=== PATIENT | male | born 1970 | race Caucasian/White ===

== ENCOUNTER 2020-09-06 03:56 | Outpatient (CLI) | payer BC, SELFPAY ==
[2020-09-06 19:05] LABS: SARS-CoV-2 RNA PCR Negative
== END 2020-09-06 03:57 | disposition home or self-care (01) ==
LOC: ANHCOVIDDT 03:57
PROVIDERS: PCP Family Medicine; Visit Provider Internal Medicine Gastroenterology
DX: Z01.812 Encounter for preprocedural laboratory examination (principal); Z20.828 Contact with and (suspected) exposure to other viral communicable diseases
CPT/HCPCS: 87635; C9803; U0003

== ENCOUNTER 2020-09-08 01:33 | Day surgery (SDC) | payer BC, SELFPAY ==
[2020-09-04 10:43] VITALS: BMI 30.4
[2020-09-08 06:23] VITALS: BP 133/87; PULSE 82; RESP 18; TEMP 36.3; O2SAT 96; BMI 31.4
[2020-09-08] MEDS: LACTATED RINGERS 1,000 ML 150 ML IV CONT (06:32)
--- NOTE | 2020-09-08 07:05 | WPDANESEPPF ---
Anes - Initial Pre Proc Eval Procedure: Operation Date: 09/08/20 07:30 Proposed Procedures p Screening Colonoscopy - Lino Krishnan MD Date/Time: 09/08/20 07:05 Surgeon: Lino Krishnan MD Pre Op Diagnosis: Neoplasm Screening Patient Data Age: 50 Gender: M Height: 1.73 m Weight: 93.7 kg Last Vital Signs Temp 36.3 C L 09/08/20 06:23 Pulse 82 09/08/20 06:23 Resp 18 09/08/20 06:23 BP 133/87 09/08/20 06:23 Pulse Ox 96 09/08/20 06:23 Allergies Allergy/AdvReac Type Severity Reaction Status Date / Time No Known Allergies Allergy Verified 09/08/20 06:22 Home Medications Medication Instructions Recorded Confirmed Type losartan 25 mg tablet 25 mg PO DAILY #90 tablet 07/11/20 09/08/20 Rx varenicline 0.5 mg (11)-1 mg (42) See Rx Instructions PO PER PKG DIR 07/11/20 07/11/20 Rx tablets in a dose pack #53 each peg 3350-electrolytes 236 240 ml PO Q10M #4000 ml 07/19/20 09/04/20 Rx gram-22.74 gram-6.74 gram-5.86 gram solution cholecalciferol (vitamin D3) 1,250 1,250 mcg PO WEEKLY #8 cap 07/20/20 09/04/20 Rx mcg (50,000 unit) capsule levothyroxine 150 mcg tablet See Rx Instructions .ROUTE 07/20/20 Rx .COMPLEX #90 tablet Adult Low Dose Aspirin 81 mg PO DAILY 09/08/20 09/08/20 History Patient hx anesthesia problems: none Family hx anesthesia problems: none PMFSH Past Medical History Medical History (Updated 09/08/20 @ 07:06 by Zeeshan Schuler MD) Chronic GERD HTN (hypertension) Hyperlipidemia Hypothyroidism Obesity JUJU (obstructive sleep apnea) Family History Family History Father Family history of elevated blood lipids Family history of coronary artery disease Mother Family history of diabetes mellitus in first degree relative Diabetes mellitus Hypertension Family history of coronary artery disease Grandparent Family history of lung cancer Social History Social History Smoking status: Smoker, status unknown Alcohol intake: current Substance use: never Substance use type: does not use Living arrangements: with family Gender identity (if verbalized by the patient): Male Spiritual care concerns: No Anes - Eval Final PreProcedure Day of Procedure 09/08/20 07:05 Patient weight: obese Heart: regular rate and rhythm Lungs: clear to auscultation and normal air movement Airway: Mallampati scale class II Neurological: alert and oriented Last oral intake: >/= 8 hours ASA classification: III Emergent: no Anesthetic plan: proceed Anesthesia type and monitoring: general GIVS Informed Consent: The patient's anesthetic plan and its attendant risks and benefits were discussed with the patient/family/POA. Questions were solicited and answers provided to the satisfaction of the patient/family/POA.
--- NOTE | 2020-09-08 07:33 | PM.HPGS ---
History of Present Illness History of Present Illness Consent: Risks, benefits, and alternatives have been discussed and questions answered. Patient agrees to proceed with procedure. Chief complaint: Neoplasm Screening Narrative: Donn Alexandre is a 50 year old male here for first screening colonoscopy Review of Systems Constitutional: Constitutional: Denies headache(s) and Denies weakness Eyes: Eyes: Denies blurry vision ENT: Reports Normal hearing present, Denies headache(s) and Denies neck pain Cardiovascular: Cardiovascular: Denies chest pain and Denies dyspnea Respiratory: Respiratory: Denies dyspnea Gastrointestinal: Gastrointestinal: Reports no additional gastrointestinal complaints Genitourinary: Genitourinary: Denies dysuria Musculoskeletal: Musculoskeletal: Denies neck pain Integumentary/Breasts: Skin/Breast: Denies dry skin Neurologic: Reports Normal hearing present, Denies headache(s) and Denies weakness Psychiatric: Psychiatric: Denies anxiety Endocrine: Endocrine: Denies change in body appearance Hematologic/Lymphatic: Hematologic/Lymphatic: Denies easy bleeding Allergic/Immunologic: Allergic/Immunologic: Denies urticaria [facility] Past Medical History Medical History (Updated 09/08/20 @ 07:06 by Zeeshan Schuler MD) Chronic GERD HTN (hypertension) Hyperlipidemia Hypothyroidism Obesity JUJU (obstructive sleep apnea) Family History Family History Father Family history of elevated blood lipids Family history of coronary artery disease Mother Family history of diabetes mellitus in first degree relative Diabetes mellitus Hypertension Family history of coronary artery disease Grandparent Family history of lung cancer Social History Social History Smoking status: Smoker, status unknown Alcohol intake: current Substance use: never Substance use type: does not use Living arrangements: with family Gender identity (if verbalized by the patient): Male Spiritual care concerns: No Meds Home Medications and Allergies Home Medications Medication Instructions Recorded Confirmed Type losartan 25 mg tablet 25 mg PO DAILY #90 tablet 07/11/20 09/08/20 Rx varenicline 0.5 mg (11)-1 mg (42) See Rx Instructions PO PER PKG DIR 07/11/20 07/11/20 Rx tablets in a dose pack #53 each peg 3350-electrolytes 236 240 ml PO Q10M #4000 ml 07/19/20 09/04/20 Rx gram-22.74 gram-6.74 gram-5.86 gram solution cholecalciferol (vitamin D3) 1,250 1,250 mcg PO WEEKLY #8 cap 07/20/20 09/04/20 Rx mcg (50,000 unit) capsule levothyroxine 150 mcg tablet See Rx Instructions .ROUTE 07/20/20 Rx .COMPLEX #90 tablet Adult Low Dose Aspirin 81 mg PO DAILY 09/08/20 09/08/20 History Allergies Allergy/AdvReac Type Severity Reaction Status Date / Time No Known Allergies Allergy Verified 09/08/20 06:22 Vital Signs Vital Signs - 24 hr 09/08/20 06:23 Temperature 97.3 F L Pulse Rate 82 Respiratory Rate 18 Blood Pressure 133/87 Pulse Oximetry 96 Exam Const: General: comfortable and no acute distress HENMT: General nose exam: Normal nares present Eyes: General: appearance normal, both eyes and all related structures Neck: Neck: no JVD Resp: Auscultation: clear to auscultation bilaterally Cardio: Rate: regular rate Rhythm: regular rhythm GI: Inspection: non-distended GI Palp: Yes Soft to palpation Skin: General skin exam: normal color Neuro: General: gait normal Speech: normal speech Extrem: General: normal to inspection Psych: Mental Status: mental status grossly normal Assessment and Plan Assessment and plan (1) Screening for colon cancer: Code(s): Z12.11 - Encounter for screening for malignant neoplasm of colon Status: Acute Assessment and Plan: will proceed with colonoscopy (2) HTN (hypertension): Code(s): I10 - Ross
[2020-09-08 08:05] VITALS: BP 101/62; PULSE 75; RESP 17; O2SAT 95
[2020-09-08 08:14] VITALS: BP 105/61; PULSE 83; RESP 20; O2SAT 98
[2020-09-08 08:25] VITALS: BP 108/68; PULSE 67; RESP 21; O2SAT 99
== END 2020-09-08 08:41 | disposition home or self-care (01) ==
PROVIDERS: PCP Family Medicine; Visit Provider Internal Medicine Gastroenterology
PROC: 0DJD8ZZ Inspection of Lower Intestinal Tract, Via Natural or Artificial Opening Endoscopic (ICD-10-PCS; CPT 45378; principal; 2020-09-08 07:30)
DX: Z12.11 Encounter for screening for malignant neoplasm of colon (principal); D12.3 Benign neoplasm of transverse colon; D12.4 Benign neoplasm of descending colon; D12.5 Benign neoplasm of sigmoid colon; K63.5 Polyp of colon; K57.90 Diverticulosis of intestine, part unspecified, without perforation or abscess without bleeding; K21.9 Gastro-esophageal reflux disease without esophagitis; I10 Essential (primary) hypertension; E03.9 Hypothyroidism, unspecified; E66.9 Obesity, unspecified; E78.5 Hyperlipidemia, unspecified; G47.33 Obstructive sleep apnea (adult) (pediatric)
CPT/HCPCS: 45385; 88305; J2704; J7120

== ENCOUNTER 2021-12-07 01:50 | Day surgery (SDC) | payer BC, SELFPAY ==
[2021-11-23 15:15] VITALS: BMI 30.4
--- NOTE | 2021-12-06 14:09 | WPDANESEPPF ---
Anes - Initial Pre Proc Eval Procedure: Operation Date: 12/07/21 12:30 Proposed Procedures p Esophagogastroduodenoscopy & Screening Colonoscopy - Lino Krishnan MD Date/Time: 12/06/21 14:09 Surgeon: Lino Krishnan MD Pre Op Diagnosis: GERD, dysphagia, hx of colon polyps Patient Data Age: 51 Gender: M Height: 1.73 m Weight: 91 kg Allergies Allergy/AdvReac Type Severity Reaction Status Date / Time No Known Allergies Allergy Verified 12/07/21 10:56 Home Medications Medication Instructions Recorded Confirmed Type Adult Low Dose Aspirin 81 mg PO DAILY 09/08/20 12/07/21 History losartan 25 mg tablet 25 mg PO DAILY #90 tablet 09/24/21 12/07/21 Rx cholecalciferol (vitamin D3) 25 mcg PO DAILY 11/23/21 12/07/21 History [Vitamin D3] levothyroxine 150 mcg PO DAILY 11/23/21 12/07/21 History loratadine [Claritin] 10 mg PO DAILY 11/23/21 12/07/21 History omeprazole 20 mg PO DAILY 11/23/21 12/07/21 History Patient hx anesthesia problems: none Family hx anesthesia problems: none Results Review: All pre-operative results and documents have been reviewed as part of the pre-operative evaluation. [facility] Past Medical History Medical History BMI 32.0-32.9,adult BMI 34.0-34.9,adult Body mass index [BMI] 29.0-29.9, adult (11/11/18) Chronic GERD Chronic joint pain Dietary counseling and surveillance (08/19/16) Elevated cholesterol Elevated glucose Essential (primary) hypertension Ganglion cyst Herpes zoster without complication HTN (hypertension) Hyperlipidemia Hypothyroidism Hypothyroidism (acquired) Mass of left wrist Neck swelling Obesity JUJU (obstructive sleep apnea) Right bundle branch block Right hip pain Routine physical examination Screening for diabetes mellitus Screening for lipid disorders Screening for thyroid disorder Thyroid enlargement Thyroid mass Tobacco abuse Vitamin D deficiency Surgical History Surgical History S/P thyroidectomy Family History Family History Father Family history of elevated blood lipids Family history of coronary artery disease Diabetes mellitus Bladder cancer Mother Family history of diabetes mellitus in first degree relative Diabetes mellitus Hypertension Family history of coronary artery disease Cerebrovascular accident Grandparent Family history of lung cancer Sibling No problems noted. Social History Social History Smoking packs per day: 1 Smoking cigarettes per day: 20.0 Smoking status: Current every day smoker Tobacco type: cigarettes Alcohol intake: current Drinks per week: 2 Substance use: never Substance use type: does not use Living arrangements: with family Additional occupation/education comments: [employer] Gender identity (if verbalized by the patient): Male Spiritual care concerns: No Anes - Eval Final PreProcedure Day of Procedure 12/06/21 14:09 Patient weight: obese Heart: regular rate and rhythm Lungs: clear to auscultation and normal air movement Airway: Mallampati scale class II Neurological: alert and oriented Last oral intake: >/= 8 hours ASA classification: III Emergent: no Anesthetic plan: proceed Anesthesia type and monitoring: general GIVS and standard monitoring Results Review: All pre-operative results and documents have been reviewed as part of the pre-operative evaluation. Informed Consent: The patient's anesthetic plan and its attendant risks and benefits were discussed with the patient/family/POA. Questions were solicited and answers provided to the satisfaction of the patient/family/POA.
[2021-12-07 10:58] VITALS: BP 144/100; PULSE 94; RESP 18; TEMP 36.5; O2SAT 98; BMI 31.7
[2021-12-07] MEDS: LACTATED RINGERS 1,000 ML 150 ML IV CONT (11:01)
--- NOTE | 2021-12-07 12:42 | PM.HPGS ---
History of Present Illness History of Present Illness Consent: Risks, benefits, and alternatives have been discussed and questions answered. Patient agrees to proceed with procedure. Chief complaint: GERD, dysphagia, hx of colon polyps Narrative: Donn Alexandre is a 51 year old male with multiple TA polyps removed 08/2020, also lately noted sometimes food getting stuck at throat level, using omeprazole otc for gerd, never had egd Review of Systems Constitutional: Constitutional: Denies headache(s) and Denies weakness Eyes: Eyes: Denies blurry vision ENT: Reports Normal hearing present, Denies headache(s) and Denies neck pain Cardiovascular: Cardiovascular: Denies chest pain and Denies dyspnea Respiratory: Respiratory: Denies dyspnea Gastrointestinal: Gastrointestinal: Reports no additional gastrointestinal complaints Genitourinary: Genitourinary: Denies dysuria Musculoskeletal: Musculoskeletal: Denies neck pain Integumentary/Breasts: Skin/Breast: Denies dry skin Neurologic: Reports Normal hearing present, Denies headache(s) and Denies weakness Psychiatric: Psychiatric: Denies anxiety Endocrine: Endocrine: Denies change in body appearance Hematologic/Lymphatic: Hematologic/Lymphatic: Denies easy bleeding Allergic/Immunologic: Allergic/Immunologic: Denies urticaria PMF Past Medical History Medical History (Updated 12/07/21 @ 12:43 by Lino Krishnan MD) Adenomatous colon polyp BMI 32.0-32.9,adult BMI 34.0-34.9,adult Body mass index [BMI] 29.0-29.9, adult (11/11/18) Chronic GERD Chronic joint pain Dietary counseling and surveillance (08/19/16) Elevated cholesterol Elevated glucose Essential (primary) hypertension Ganglion cyst Herpes zoster without complication HTN (hypertension) Hyperlipidemia Hypothyroidism Hypothyroidism (acquired) Mass of left wrist Neck swelling Obesity JUJU (obstructive sleep apnea) Right bundle branch block Right hip pain Routine physical examination Screening for diabetes mellitus Screening for lipid disorders Screening for thyroid disorder Thyroid enlargement Thyroid mass Tobacco abuse Vitamin D deficiency Surgical History Surgical History S/P thyroidectomy Family History Family History Father Family history of elevated blood lipids Family history of coronary artery disease Diabetes mellitus Bladder cancer Mother Family history of diabetes mellitus in first degree relative Diabetes mellitus Hypertension Family history of coronary artery disease Cerebrovascular accident Grandparent Family history of lung cancer Sibling No problems noted. Social History Social History Smoking packs per day: 1 Smoking cigarettes per day: 20.0 Smoking status: Current every day smoker Tobacco type: cigarettes Alcohol intake: current Drinks per week: 2 Substance use: never Substance use type: does not use Living arrangements: with family Additional occupation/education comments: [employer] Gender identity (if verbalized by the patient): Male Spiritual care concerns: No Meds Home Medications and Allergies Home Medications Medication Instructions Recorded Confirmed Type Adult Low Dose Aspirin 81 mg PO DAILY 09/08/20 12/07/21 History losartan 25 mg tablet 25 mg PO DAILY #90 tablet 09/24/21 12/07/21 Rx cholecalciferol (vitamin D3) 25 mcg PO DAILY 11/23/21 12/07/21 History [Vitamin D3] levothyroxine 150 mcg PO DAILY 11/23/21 12/07/21 History loratadine [Claritin] 10 mg PO DAILY 11/23/21 12/07/21 History omeprazole 20 mg PO DAILY 11/23/21 12/07/21 History Allergies Allergy/AdvReac Type Severity Reaction Status Date / Time No Known Allergies Allergy Verified 12/07/21 10:56 Vital Signs Vital Signs - 24 hr 12/07/21 10:58 Temperature 97.7 F P
--- NOTE | 2021-12-07 13:18 | SUR.OPER ---
EGD start 12:48 end 12:53pm Colon start 12:59 end 13:14pm
[2021-12-07 13:19] VITALS: BP 100/61; PULSE 80; RESP 19; O2SAT 96
--- NOTE | 2021-12-07 13:19 | SUR.OPER ---
RN updated family
[2021-12-07 13:29] VITALS: BP 111/70; PULSE 75; RESP 19; O2SAT 98
[2021-12-07 13:39] VITALS: BP 133/90; PULSE 66; RESP 24; O2SAT 100
== END 2021-12-07 13:50 | disposition home or self-care (01) ==
PROVIDERS: PCP Family Medicine; Visit Provider Internal Medicine Gastroenterology
PROC: 0DJ08ZZ Inspection of Upper Intestinal Tract, Via Natural or Artificial Opening Endoscopic (ICD-10-PCS; CPT 43235; principal; 2021-12-07 12:30)
DX: Z12.11 Encounter for screening for malignant neoplasm of colon (principal); K57.30 Diverticulosis of large intestine without perforation or abscess without bleeding; D12.3 Benign neoplasm of transverse colon; K64.8 Other hemorrhoids; R13.10 Dysphagia, unspecified; K44.9 Diaphragmatic hernia without obstruction or gangrene; K29.70 Gastritis, unspecified, without bleeding; K21.9 Gastro-esophageal reflux disease without esophagitis; I10 Essential (primary) hypertension; E89.0 Postprocedural hypothyroidism; E78.5 Hyperlipidemia, unspecified; G47.33 Obstructive sleep apnea (adult) (pediatric); E55.9 Vitamin D deficiency, unspecified; I45.10 Unspecified right bundle-branch block; F17.210 Nicotine dependence, cigarettes, uncomplicated; E66.9 Obesity, unspecified; Z68.31 Body mass index [BMI] 31.0-31.9, adult; Z79.82 Long term (current) use of aspirin
CPT/HCPCS: 45380; 45385; 43239; 43248; 88305; J2704; J7120

== ENCOUNTER 2021-12-21 13:32 | Outpatient (CLI) | payer BC, SELFPAY ==
--- NOTE | 2021-12-27 16:16 | WPDHOLTEREM ---
Holter/Event Monitor Holter/Event Monitor Date of procedure: 12/21/21 Holter/Event Procedure: 24 Hr Holter Monitor Indications: Palpitations Conclusion: 1. 24 hour holter monitor on 12/21/21. 2. Underlying rhythm is sinus rhythm. HR range 56-145 bpm; average HR 80 bpm. 3. There are 5 premature supraventricular complexes. No supraventricular tachycardia. 4. No premature ventricular complexes. No ventricular tachycardia. 5. No sinoatrial or atrioventricular blocks. No significant pauses greater than 2 seconds. 6. No symptoms available for correlation.
== END 2021-12-21 13:33 | disposition home or self-care (01) ==
PROVIDERS: PCP Family Medicine; Visit Provider Nurse Practitioner Family
DX: R00.2 Palpitations (principal)
CPT/HCPCS: 93225; 93226

== ENCOUNTER 2023-12-19 10:34 | Outpatient (CLI) | payer BC, SELFPAY ==
--- NOTE | ~2023-12-19 | CT_ITS ---
Non-contrast CT scan of the Abdomen and Pelvis Clinical indication: Abdominal pain Technique: 2.5 mm axial scans were obtained through the abdomen and pelvis without intravenous or or al contrast. Dose reduction technique was used on this scan by utilizing automated exposure control a nd iterative reconstruction technique. The dose-length product (DLP) was 801.82 mGy-cm. Findings: Images through the lung bases reveal no abnormalities. There is no evidence of renal or ureteral calculi. The kidneys and the ureters are nondilated. The liver, spleen, pancreas, and adrenals appear normal. Cholecystectomy clips are present. There are atherosclerotic calcifications of the aorta. There is no evidence of bowel obstruction. There is minimal haziness in the central mesentery with sm all shotty lymph nodes present. Images through the pelvis were performed. There is no evidence of ascites or lymphadenopathy. Urinary bladder unremarkable. Prostate gland and seminal vesicles are unremarkable. Small fat-containing rig ht inguinal hernia noted. 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 Small fat-containing right inguinal hernia. Reviewed, dictated and finalized at [facility]. 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 Small fat-containing right inguinal hernia.
== END 2023-12-19 10:35 | disposition home or self-care (01) ==
LOC: ANHIMG 10:38
PROVIDERS: PCP Family Medicine; Visit Provider Nurse Practitioner Family
DX: R10.9 Unspecified abdominal pain (principal); R19.7 Diarrhea, unspecified; R10.32 Left lower quadrant pain; K40.90 Unilateral inguinal hernia, without obstruction or gangrene, not specified as recurrent
CPT/HCPCS: 74176

== ENCOUNTER 2024-03-16 07:49 | Outpatient (CLI) | payer BC, SELFPAY ==
--- NOTE | ~2024-03-16 | CT_ITS ---
CT of the Abdomen and Pelvis: Indication: Mesenteric panniculitis Technique: 2.5 mm axial scans were obtained through the abdomen and pelvis following intravenous adm inistration of 100 cc of Omnipaque 350. Dose reduction technique was used on this scan by utilizing a utomated exposure control and iterative reconstruction technique. The dose-length product (DLP) was 8 99.02 mGy-cm. COMPARISON: 12/19/2023 Findings: Scans through the lung bases are unremarkable. The liver, spleen, pancreas, adrenals and kidneys are within normal limits. Cholecystectomy clips are present. There are atherosclerotic calcifications of the aorta. No lymphadenopathy. No bowel obstruction or bowel wall thickening. There is no evidence to suggest acute appendicitis. No distinct evidence for mesenteric panniculitis. Images through the pelvis were performed. Urinary bladder unremarkable. Prostate gland unremarkable. Small fat-containing right inguinal hernia present. Ascites. Impression: Interval resolution of mesenteric panniculitis. Small fat-containing right inguinal hernia. Reviewed, dictated and finalized at [facility]. Impression: Interval resolution of mesenteric panniculitis. Small fat-containing right inguinal hernia.
[2024-03-16 08:12] LABS: Estimated Glomerular Filt Rate > 60
== END 2024-03-16 07:50 | disposition home or self-care (01) ==
PROVIDERS: PCP Family Medicine; Visit Provider Nurse Practitioner
DX: K65.4 Sclerosing mesenteritis (principal); K40.90 Unilateral inguinal hernia, without obstruction or gangrene, not specified as recurrent
CPT/HCPCS: 74177; Q9967

== ENCOUNTER 2025-02-25 01:34 | Day surgery (SDC) | payer OTHER, SELFPAY ==
[2025-02-16 13:13] VITALS: BMI 29.7
--- OUTSIDE RECORDS SUMMARY | 2025-02-25 01:36 | XMS_ITS | Clinical Summary ---
Author Organization [facility] Address [address] [place] [address] Care Team Providers Care Global Recruiter Name Role Phone Edenilson Dupree MD Primary Care Provider [phone] Source Comments [facility],non-owned Affiliates and Associated Physician Practices is amultiple site organization consisting of ambulatory clinics and hospital sitesin [place], [place], [place] and [place]. This disclosure is being madepursuant to the Care Everywhere program and may not contain all information available regarding this patient. Last updated 18.[facility] Allergies No known active allergies Medications * Be aware that medications may not be up to date on this document. Alwaysverify current medications with the patient. Medication Sig Dispensed Refills Start Date End Date Status aspirin (ASPIRIN) 81 MG tablet Take 81 mg by mouth DAILY. 09/04/2017 Active atorvastatin (LIPITOR) 20 MG tablet 5 04/28/2017 Active omeprazole (PRILOSEC) 20 MG capsule Take 20 mg by mouth DAILY. 4 01/06/2017 Active losartan (COZAAR) 50 MG tablet Take 50 mg by mouth DAILY. 01/21/2017 Active vitamin D, ergocalciferol, (DRISDOL) 16374 UNITS capsule Take 50,000 capsules by mouth ONCE. 01/21/2017 Active SYNTHROID 150 MCG tablet Take 1 tablet by mouth daily before breakfast 90 tablet 4 11/12/2018 Active Active Problems Problem Noted Date Diagnosed Date Fatigue 03/27/2017 Hypothyroidism (acquired) 03/27/2017 Resolved Problems Problem Noted Date Diagnosed Date Resolved Date Hypogonadism in male 07/03/2017 018 Social History Tobacco Use Types Packs/Day Years Used Date Smoking Tobacco: Former Cigarettes Q uit: 10/22/2016 Smokeless Tobacco: Never Alcohol Use Standard Drinks/Week Comments No 0 (1 standard drink = 0.6 oz pur e alcohol) Sex and Gender Information Value Date Recorded Sex Assigned at Not on file Gender Identity Not on file Sexual Orientation Not on file Last Filed Vital Signs Vital Sign Reading Time Taken Comments Blood Pressure 108/62 07/23/2018 3:35 PM CDT Pulse 84 07/23/2018 3:35 PM CDT Temperature 36.7 C (98 F) 07/23/2018 3:35 PM CDT Respiratory Rate 14 04/23/2018 8:42 AM CDT Oxygen Saturation 97% 07/23/2018 3:35 PM CDT Inhaled Oxygen Concentration - - Weight 86.5 kg (190 lb 11.2 oz) 07/23/2018 3:35 PM CDT Height 172 cm (5' 7.72 ) 07/23/2018 3:35 PM CDT Body Mass Index 29.24 07/23/2018 3:35 PM CDT Plan of Treatment Health Maintenance Due Date Last Done Comments COLOGUARD (AGES 45-75) - COL ON CA SCREENING 1969 COLON MONITORING 1969 COLONOSCOPY - COLON CA SCREENING 1969 CT COLONOGRAPHY - COLON CA SCREENING 1969 Colorectal Cancer Screening 1969 FIT - COLON CA SCREENING 1969 FLEX SIG - COLON CA SCREENING 1969 HIV SCREENING 1984 HEPATITIS C SCREENING 03/24/1987 DTAP/TDAP/TD VACCINES (1 - Tdap) 1988 HEPATITIS B VACCINE (1 of 3 - 19+ 3-dose series) 1988 SCREENING FOR DIABETES 04/23/2018 PNEUMOCOCCAL VACCINE 50+ (1 of 1 - PCV) 2019 ZOSTER VACCINE (1 of 2) 2019 COVID-19 VACCINE ( - 2023-2 5 season) 2024 DEPRESSION SCREENING 11/17/2024 INFLUENZA VACCINE (Season Ended) 2025 HIB VACCINE Aged Out No longer eligi ble based on patient's age to complete this topic HPV VACCINE Aged Out No longer eligi ble based on patient's age to complete this topic MENINGOCOCCAL (Group B) VACC INE SHARED DECISION-MAKING Aged Out No longer eligibl e based on patient's age to complete this topic MENINGOCOCCAL GROUPS A/C/Y/W VACCINE Aged Out No longer eligible b ased on patient's age to complete this topic PNEUMOCOCCAL VACCINE Aged Out No long er eligible based on patient's age to complete this topic Care Teams Global Recruiter Relationship Specialty Start Date End Date Edenilson Dupree MD [address] [place] [address] PCP - General 01/21/17
--- OUTSIDE RECORDS SUMMARY | 2025-02-25 01:36 | XMS_ITS | Encounter Summary ---
Author Organization [facility] Address [address] [place] [address] Care Team Providers Care Night Shift Supervisor Name Role Phone Edenilson Dupree MD Primary Care Provider [phone] Encounter Details Date Type Department Care Team (Late st Contact Info) Description 04/11/2022 Abstract [facility] [address] [address] Hilary Chiang MA Social History Tobacco Use Types Packs/Day Years Used Date Smoking Tobacco: Every Day Cigarettes Smokeless Tobacco: Never Sex and Gender Information Value Date Recorded Sex Assigned at Not on file Legal Sex Male 8:22 PM CDT Gender Identity Not on file Sexual Orientation Not on file documented as of this encounter Plan of Treatment Not on file documented as of this encounter Visit Diagnoses Not on filedocumented in this encounter Care Teams Night Shift Supervisor Relationship Specialty Start Date End Date Edenilson Dupree MD [address] [place], [place] [id number] PCP - General 03/31/14 documented as of this encounter
--- OUTSIDE RECORDS SUMMARY | 2025-02-25 01:36 | XMS_ITS | Encounter Summary ---
Author Organization [facility] Address [address] [place] [address] Care Team Providers Care Ambulatory Analyst Name Role Phone Edenilson Dupree MD Primary Care Provider [phone] Reason for Visit * Reason Onset Date Comments Appointment 02/01/2019 Encounter Details Date Type Department Care Team (Late st Contact Info) Description 02/01/2019 Telephone [facility] General Internal Medicine [address] [address] Albin Mars MD [address] [place] [address] Appointment Social History Tobacco Use Types Packs/Day Years Used Date Smoking Tobacco: Former Cigarettes Q uit: 10/22/2016 Smokeless Tobacco: Never Alcohol Use Standard Drinks/Week Comments No 0 (1 standard drink = 0.6 oz pur e alcohol) Sex and Gender Information Value Date Recorded Sex Assigned at Not on file Gender Identity Not on file Sexual Orientation Not on file documented as of this encounter Miscellaneous Notes * Telephone Encounter - Vanessa Robertson - 02/01/2019 11:53 AM CDT PT: Baldomero Pop PH: [phone] I called patient to get him rescheduled for a bumped appointment and Dr. Mars does not have anything again until April and patient stated he has medications that need regulating so he cannot wait until April. Please advise how to schedule this patient to get him in earlier. Thanks, Vanessa documented in this encounter Plan of Treatment Not on file documented as of this encounter Visit Diagnoses Not on filedocumented in this encounter Care Teams Ambulatory Analyst Relationship Specialty Start Date End Date Edenilson Dupree MD [address] [place] [address] PCP - General 01/21/17 documented as of this encounter
--- OUTSIDE RECORDS SUMMARY | 2025-02-25 01:36 | XMS_ITS | Data Portability ---
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 Discussed evaluation and treatment options including risks and benefits with patient, and patient expressed understanding. The following interventions were recommended: heart healthy low-fat, low-sodium diet, continue regular exercise, maintain appropriate weight, continue current medications, and medical follow-up as noted. [email or web address] Not available 04/28/2017 17:35:19 Plan of Treatment Reminders Order Date Submit Date Provider Last Modified By Organization Details Last Modified Time Details Appointments None recorded. Lab None recorded. Referral None recorded. Procedures None recorded. Surgeries None recorded. Imaging None recorded. Medication Orders losartan 25 mg tablet 2017 018 INTERFACE [employer] #[id number], [address] [place], [place], [id number], 8 17:28:08 losartan 25 mg tablet 2017 018 INTERFACE [employer] #[id number], [address] [place], [place], [id number], 8 18:04:49 atorvastat in 20 mg tablet 2016 017 INTERFACE [employer] #[id number], [address], [place], [id number], 7 17:46:14 Patient TargetsNo targets recorded. Patient Instructions Encounter Date Encounter Id Patient Instructions Last Modified By Organization Details Last Modified Time 07/01/2017 [id number] Weight loss 20 pounds Exercise advised Low cholesterol diet advised Low sodium diet advised. [email or web address] Not available 07/01/2017 18:15:16 12/30/2017 [id number] Weight loss 10 pounds Exercise advised Low cholesterol diet advised Low sodium diet advised. [email or web address] Not available 12/30/2017 18:04:44 06/23/2018 [id number] Exercise advised Low cholesterol diet advised Low sodium diet advised. Scribed by Chantelle PACE [email or web address] Not available 06/23/2018 17:26:22 Reason for Referral None Reported. Results Created Date Observation Date Name Description Value Unit Range Abnormal Flag Note LastModifiedBy Organization Detail LastModifiedTime 04/23/20 17 01/22/2017 home sleep testi ng* No observ ation record ed. [email or web address] Not Available 2016 14:17:30 04/29/20 17 04/28/2017 elect rocar diogr am No observ ation record ed. [email or web address] Not Available 2016 12:28:07 12/31/19 18 12/30/2017 elect rocar diogr am No observ ation record ed. [email or web address] Not Available 2017 18:32:16 06/23/20 18 06/23/2018 elect rocar diogr am No observ ation record ed. [email or web address] Not Available 2017 05:27:37 07/20/20 18 07/07/2018 stres s echoc ardio gram No observ ation record ed. [email or web address] Not Available 2018 16:18:13 Result Notes None recorded. Problems Name Problem SNOMED Code Status Onset Date Resolution Date Notes Provider Name and Address Organization Details Recorded Time Dyslipidemia 563948188 Active 2016 EZEKIEL Cain [facility] 7 06:24:11 Benign hypertension 20843164 Active 2016 EZEKIEL Cain [facility] 7 06:24:36 Multinodular goiter 913565976 Active 2016 Candy Gonzáles [facility] 7 02:18:20 Electrocardiog [place] abnormal 787678923 [facility] 7 15:41:59 Obstructive sleep apnea syndrome 61713524 Active 2016 Vergaramani Jose [facility] 7 15:42:16 Type 2 diabetes mellitus without complication 311728402 Active 2016 [facility] 7 15:42:40 Problem Notes None recorded. Procedures Surgical History None recorded. Imaging Results Imaging Date Name Status LastModified by Organization Details LastModified Time 01/22/2017 home sleep testing* completed Infor mation not available 04/23/2017 14:17:30 04/28/2017 electrocardiogram completed Informa tion not available 06/28/2017 12:28:07 12/30/2017 electrocardiogram completed Informa tion not available 12/31/2017 18:32:16 06/23/2018 electrocardiogram completed [email or web address] Informa tion not available 06/24/2018 05:27:37 07/07/2018 stress echocardiogram completed Information not available 06/19/2019 16:18:13 Procedure Notes None recorded. Medical Equipment None Reported. Allergies No known drug allergies Medications Name Sig Start Date Stop Date Status Note LastModified by Organization Details LastModified Time losartan 50 mg tablet TAKE 1 TABLET BY MOUTH DAILY 12/30 completed Not Available Not Available Not Available levothyroxin e 175 mcg tablet 1 tab qd active Not Available Not Available Not Available levothyroxin e 137 mcg tablet active Not Available Not Available Not Available atorvastatin 20 mg tablet TAKE 1 TABLET BY MOUTH EVERY DAY active Not Available Not Available No t Available atorvastatin 10 mg tablet 1 tab qd 07/01 completed Not Available Not Available Not Available valacyclovir 1 gram tablet 10/21 completed Not Available Not Available Not Available hydrocodone 5 mg-acetamino phen 325 mg tablet active Not Available Not Available Not Available Synthroid 150 mcg tablet 1 tab qd active Not Available Not Available Not Available levothyroxin e 100 mcg tablet 01/20 completed Not Available Not Available Not Available oxycodone-ac etaminophen 5 mg-325 mg tablet 12/30 completed Not Available Not Available Not Available levothyroxin e 88 mcg tablet 01/20 completed Not Available Not Available Not Available oseltamivir 75 mg capsule 04/28 completed Not Available Not Available Not Available levothyroxin e 125 mcg tablet Take 1 tablet every day by oral route for 30 days. active Not Available Not Available No t Available losartan 25 mg tablet TAKE 1 TABLET BY MOUTH EVERY DAY active Not Available Not Available No t Available omeprazole 20 mg capsule,berkley yed release 1 tab qd active Not Available Not Available Not Available benazepril 20 mg tablet 01/20 completed Not Available Not Available Not Available ergocalcifer ol (vitamin D2) 1,250 mcg (50,000 unit) capsule 1 cap weekly 04/28 completed Not Available Not Available Not Available benazepril 10 mg tablet 10/21 completed Not Available Not Available Not Available levothyroxin e 112 mcg tablet 04/28 completed Not Available Not Available Not Available amoxicillin 875 mg-potassium clavulanate 125 mg tablet 12/30 completed Not Available Not Available Not Available chlorhexidin e gluconate 0.12 % mouthwash 12/30 completed Not Available Not Available Not Available Aspir-81 1 tab qd active Not Available Not Av ailable Not Available Vitamin D3 50 mcg (2,000 unit) capsule Take 1 capsule every day by oral route as directed . active Not Available Not Available No t Available Chantix Continuing Month Box 1 mg tablet 1 tab bid active Not Available Not Available No t Available Chantix Starting Month Box 0.5 mg (11)-1 mg (42) tablets in dose pack active Not Available Not Available Not Available Vitals Date Recorded Body height Body mass index (BMI) Body weight Heart rate Oxygen saturation Oxygen saturation in Arterial blood by Pulse oximetry Systolic blood pressure Diastolic blood pressure Provider Name and Address Organization Details Last Updated DateTime 8 172.72 cm 30 kg/m2 53081.7 g 76 /min 94 % 94 % 104 mm[Hg] 80 mm[Hg] Alisha Chance [facility] 8 17:38:41 Date Recorded Body height Body mass index (BMI) Body weight Oxygen saturation Oxygen saturation in Arterial blood by Pulse oximetry Heart rate Systolic blood pressure Diastolic blood pressure Provider Name and Address Organization Details Last Updated DateTime 8 172.72 cm 28.6 kg/m2 58956.3 7 g 94 % 94 % 66 /min 128 mm[Hg] 84 mm[Hg] Melody Bull [facility] 8 16:59:40 Date Recorded Body height Body mass index (BMI) Body weight Heart rate Oxygen saturation Oxygen saturation in Arterial blood by Pulse oximetry Systolic blood pressure Diastolic blood pressure Provider Name and Address Organization Details Last Updated DateTime 7 172.72 cm 33.6 kg/m2 560329. 91 g 93 /min 96 % 96 % 124 mm[Hg] 86 mm[Hg] Alisha Chance [facility] 7 16:23:13 Date Recorded Body height Body mass index (BMI) Body weight Heart rate Oxygen saturation Oxygen saturation in Arterial blood by Pulse oximetry Systolic blood pressure Diastolic blood pressure Provider Name and Address Organization Details Last Updated DateTime 7 172.72 cm 33.5 kg/m2 29419.3 2 g 96 /min 98 % 98 % 124 mm[Hg] 84 mm[Hg] Selina Case [facility] 7 17:25:14 Social History Question Answer Notes LastModified by Organizat ion Details LastModified Time Tobacco Smoking Status Current Every Day Smoker Vipin redmond [facility] 10/21/2016 12:42:29 What Was The Date Of Your Most Recent Tobacco Screening? 06/23/2018 Information n ot available 06/10/2019 How Many Years Have You Smoked Tobacco? 20 [email or web address] Information not available 10/21/2016 Sex: Unknown Functional Status None recorded. Mental Status None recorded. Family History Relationship Description Onset Age of this Age Resolved Age Notes LastModified by Organization Details LastModified Time Father Myocardial infarction [email or web address] Not available 10/21 12:40:47 Father Diabetes mellitus mother nhadid Not available 2015 12:40:59 Father Hypertensive disorder nhadid Not available 2015 12:41:15 Father Hypercholest erolemia mother nhadid Not available 2015 12:41:52 Mother Cerebrovascu lar accident TIA [email or web address] Not available 03/2016 12:42:14 Medical History Condition Response Thyroid Disease Y Diabetes Y Hyperlipidemia Y Sleep Apnea Y Hypertension Y Past Encounters Encounter ID Performer Location Encounter Start Date Encounter Closed Date Diagnosis/Indication Diagnosis SNOMED-CT Code Diagnosis ICD10 Code Diagnosis Note [id number] MD Thad Galvan Office [address] [place] [address] 10/21/2016 12:01:44 10/22/2016 13:06:52 Electrocardiogram abnormal 315176708 R94.31 Will get exercise stress echo, to look for any structural heart disease, and to look for any ischemia Pre-surger y evaluation 851863972 Z01.818 Dyslipidemia 280834821 E 78.5 Benign hypertension 1072 5009 I10 Has sided effects from Benazepril will switch to Losartan [id number] MD Thad Galvan Office [address] [place] [place] [address] 01/20/2017 10:06:39 01/21/2017 14:03:42 Electrocardiogram abnormal 338630229 R94.31 Pre-surger y evaluation 614265985 Z01.818 Dyslipidemia 170460034 E 78.5 Benign hypertension 1072 5009 I10 Has sided effects from Benazepril switched to Losartan Obstructiv e sleep apnea syndrome 04692429 G47.33 Type 2 romero betes mellitus without complication 478077116 E11.9 [id number] Martin Chinchilla MD [facility] OFFICE [address] [place] [address] 04/28/2017 15:57:12 04/29/2017 10:19:26 Electrocardiogram abnormal 058731327 R94.31 Had SE 10/21/16 : Negative stress echo. Mild exercise impairment . Increase exercise. Dyslipidemia 091411020 E 78.5 03/22/17: LDL 110 Needs to keep LDL less than 70, and HDL more than 40. Increased atorvastat in 10 mg to 20 mg 04/28/17. FLP 4 wks. Increase weight loss and exercise. Benign hypertension 1072 5009 I10 Patient's blood pressure is {{well-con trolled* s omewhat well-contr olled not well-contr olled}} on present medical therapy. Patient is {{tolerati ng, without difficulty ,* having side effects with}} the current medication s. I have {{not made* made the following} } changes to the current regimen. {{ Patient is advised to maintain a blood pressure diary.}} Patient was advised to eat a low-sodium diet (2 grams sodium or less daily). Obstructiv e sleep apnea syndrome 74321206 G47.33 Tolerating CPAP. Continue. Type 2 romero betes mellitus without complication 176611132 E11.9 03/22/17 - HGb A1C 6.7 Pt to f/u with PCP. [id number] Martin Chinchilla MD [facility] [address] [place] [address] 07/01/2017 17:02:23 07/02/2017 08:46:28 Benign hypertension 02545787 I10 Has sided effects from Benazepril switched to Losartan Electrocar diogram abnormal 476899282 R94.31 Had SE 10/21/16 : Negative stress echo. Mild exercise impairment . Increase exercise. Dyslipidemia 897690066 E 78.5 06/30/17 LDL 100 Needs to keep LDL less than 70, and HDL more than 40. Increased atorvastat in 10 mg to 20 mg 04/28/17. Increase weight loss and exercise. Obstructiv e sleep apnea syndrome 71688903 G47.33 Tolerating CPAP. Continue. Type 2 romero betes mellitus without complication 988966110 E11.9 03/22/17 - HGb A1C 6.7 Pt to f/u with PCP. Metabolic syndrome X 237 482960 E88.81 Needs to lose weight 20- 30 pounds [id number] Martin Chinchilla MD [facility] [address] [place] [address] 12/30/2017 16:34:50 12/31/2017 13:28:28 Benign hypertension 33322029 I10 On Losartan we will decrease from 50mg to 25mg. Electrocar diogram abnormal 627157926 R94.31 Had SE 10/21/16 : Negative stress echo. Mild exercise impairment . Increase exercise. Dyslipidemia 099746347 E 78.5 06/30/17 LDL 100Will repeat FLP before next visitNeeds to keep LDL less than 70, and HDL more than 40. Atorvastat in 20 mg qd Increase weight loss and exercise. Obstructiv e sleep apnea syndrome 87531539 G47.33 Tolerating CPAP. Continue. Type 2 romero betes mellitus without complication 557342104 E11.9 03/22/17 - HGb A1C 6.7Will check glucose before next visit.Pt to f/u with PCP. Metabolic syndrome X 237 373663 E88.81 Needs to lose weight 20- 30 pounds [id number] Martin Chinchilla MD [facility] [address] [place] [address] 06/23/2018 16:33:02 07/22/2018 21:16:30 Benign hypertension 88762472 I10 Losartan was decreased to 25 mg. Electrocar diogram abnormal 858849924 R94.31 Had SE 10/21/16 : Negative stress echo. Mild exercise impairment . Increase exercise. Dyslipidemia 090834315 E 78.5 06/23/18 LDL 93 Needs to keep LDL less than 70, and HDL more than 40. Atorvastat in 20 mg qd Increase weight loss and exercise. Obstructiv e sleep apnea syndrome 26814010 G47.33 Tolerating CPAP. Continue. Type 2 romero betes mellitus without complication 301805801 E11.9 03/22/17 - HGb A1C 6.7Will check glucose before next visit.Pt to f/u with PCP. Metabolic syndrome X 237 701742 E88.81 Will get exercise stress echo, to look for any structural heart disease, and to look for any ischemia [id number] Marcela Collins [facility] [address] [place] [address] 06/23/2018 17:39:01 05/31/2019 18:35:03 Benign hypertension 22661066 I10 Losartan was decreased to 25 mg. Health Concerns Section Related Observation LastModified by Organization Detai ls LastModified Time None Recorded Concern Status LastModified by Organization Details LastModified Time None Recorded Advance Directives Directive None Recorded Payers Encounter Date Sequence Insurance Name Policy Number Policy Boyle Covered Member ID Boyle Member ID Guarantor Name 04/28/2017 1 [place] [employer] [place] [place] [place] [address] [facility] [id number] [facility] 07/01/2017 1 [place] [address] [facility] [id number] [facility] 12/30/2017 1 [place] [address] [facility] [id number] [facility] 06/23/2018 1 [place] [facility] EMPLOYEE PROGRAM (PPO) [address] [facility] [id number] [facility] 06/23/2018 1 [place] [facility] EMPLOYEE PROGRAM (PPO) [address] [facility] [id number] [facility] Notes Date Note Type Note Provider Name and Address Organization Details Recorded Time 04/28/2017 text/html 04/28/17 CC: Follow-up 47 year old man with Hyperlipidemia, and Hypertension, thyroidectomy 10/22/16, is here for cardiac follow up, had RBBB. Pt is here today for a Follow-up. Pt started with CPAP in February. He is not feeling well. Pt reports he still has daytime sleepiness and fatigue. Synthroid increased per endo recently. Previously, he has dyspnea on exertion, and occasional chest pain, orthopnea, no PND's. NO Palpitation. NO leg edema. No side effects from current medications. He has been active, due to Shortness of breath. No known history of CAD, LA, Arrhythmia, or valvular heart disease. Had a stress test, was negative Had negative SE done in 10/21/16 Results from this visit, or from the past:03/22/17: Na 144 ,K 4.3 ,CL 105 ,CO2 22 ,GLU 127 ,BUN 19 ,CR 0.90, CK 82 ,TC 167 ,TG 113 ,HDL 34 ,LDL 110 ,AST 25 ,ALT 53 10-21-2016 SOD 142, K 4.1, CL 104, CO2 26, GL 159, BUN 18, CR 0.9 EK10/21/16 NSR, RBBB. Abnormal ECG. No previous ECGs available. SE 10/21/16 : Negative stress echo. Mild exercise impairment. Martin Chinchilla MD [address] [place], [address], [facility] 04/28/2017 23:35:32 07/01/2017 text/html 07/01/17 CC: Follow-up 47 year old man with Hyperlipidemia, and Hypertension, thyroidectomy 10/22/16, is here for cardiac follow up, had RBBB. Patient presents today for follow-up. No new complaints, feeling well overall. 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 No chest pain. No shortness of breath at rest. Rare dyspnea on exertion. No palpitations. No dizziness. No syncope or near syncope. NO leg edema. No side effects from current medications. He has been active, due to Shortness of breath. No known history of CAD, LA, Arrhythmia, or valvular heart disease. Had a stress test, was negative Previously, pt started with CPAP in February. He is not feeling well. Pt reports he still has daytime sleepiness and fatigue. Synthroid increased per endo recently. Had negative SE done in 10/21/16 Results from this visit, or from the past:06/30/17 : VIT D : TC 158 ,TG 146 ,HDL 29 ,LDL 100 , 03/22/17: Na 144 ,K 4.3 ,CL 105 ,CO2 22 ,GLU 127 ,BUN 19 ,CR 0.90, CK 82 ,TC 167 ,TG 113 ,HDL 34 ,LDL 110 ,AST 25 ,ALT 53 10-21-2016 SOD 142, K 4.1, CL 104, CO2 26, GL 159, BUN 18, CR 0.9 EKG 04/28/17 : NSR. IRBBB. low voltage, chest leads EK10/21/16 NSR, RBBB. Abnormal ECG. No previous ECGs available. SE 10/21/16 : Negative stress echo. Mild exercise impairment. Martin Chinchilla MD [address] [place], [address], [facility] 07/01/2017 18:15:24 12/30/2017 text/html 12/30/2017 CC: Follow-up 47 year old man with Hyperlipidemia, and Hypertension, thyroidectomy 10/22/16, is here for cardiac follow up, had RBBB. He has lost 23 lbs since last visit. Today his BP is 104/80, but denies any lightheadedness, dizziness, syncope and near syncope. Quit smoking Oct 2017. He is active now and eating a low carb diet. Patient presents today for follow-up. No new complaints, feeling well overall. 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 No chest pain. No shortness of breath at rest. No dyspnea on exertion. No palpitations. No dizziness. No syncope or near syncope. NO leg edema. No side effects from current medications. He has been active, due to Shortness of breath. No known history of CAD, LA, Arrhythmia, or valvular heart disease. Had a stress test, was negative Previously, pt started with CPAP in February. He is not feeling well. Pt reports improved daytime sleepiness and fatigue. Feeling better. Results from this visit, or from the past: 06/30/17 : VIT D : TC 158 ,TG 146 ,HDL 29 ,LDL 100 ,03/22/17: Na 144 ,K 4.3 ,CL 105 ,CO2 22 ,GLU 127 ,BUN 19 ,CR 0.90, CK 82 ,TC 167 ,TG 113 ,HDL 34 ,LDL 110 ,AST 25 ,ALT 53 10-21-2016 SOD 142, K 4.1, CL 104, CO2 26, GL 159, BUN 18, CR 0.9 EKG 04/28/17 : NSR. IRBBB. low voltage, chest leadsEK10/21/16 NSR, RBBB. Abnormal ECG. No previous ECGs available. SE 10/21/16 : Negative stress echo. Mild exercise impairment. Martin Chinchilla MD [address] [place], [address], [facility] 12/30/2017 18:05:11 06/23/2018 text/html 06/23/18 CC: Follow-up 47 year old man with Hyperlipidemia, and Hypertension, thyroidectomy 10/22/16, is here for cardiac follow up, had RBBB. He has lost 3 lbs since his last visit. Quit smoking Oct 2017. He is active now and eating a low carb diet. Patient presents today for follow-up. No new complaints, feeling well overall. 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 No chest pain. No shortness of breath at rest. No dyspnea on exertion. No palpitations. No dizziness. No syncope or near syncope. NO leg edema. No side effects from current medications. He has been active, due to Shortness of breath. No known history of CAD, LA, Arrhythmia, or valvular heart disease. Had a stress test, was negative Previously, pt started with CPAP in February. He is not feeling well. Pt reports improved daytime sleepiness and fatigue. Feeling better. Results from this visit, or from the past: 06/23/18: TC 153 ,HDL 42 ,LDL : VIT D : TC 158 ,TG 146 ,HDL 29 ,LDL 100 ,03/22/17: Na 144 ,K 4.3 ,CL 105 ,CO2 22 ,GLU 127 ,BUN 19 ,CR 0.90, CK 82 ,TC 167 ,TG 113 ,HDL 34 ,LDL 110 ,AST 25 ,ALT 53 10-21-2016 SOD 142, K 4.1, CL 104, CO2 26, GL 159, BUN 18, CR 0.9 EKG 06/23/2018: Rbbb; low voltage, chest leads; left axis deviationEK12/30/17 Incomplete RBBB. Low voltage, chest leads. Inferior myocardial infarction, age undetermined. Left axis deviationEKG 04/28/17 : NSR. IRBBB. low voltage, chest leadsEK10/21/16 NSR, RBBB. Abnormal ECG. No previous ECGs available. SE 10/21/16 : Negative stress echo. Mild exercise impairment. Mratin Chinchilla MD [address] [place], [address], [place] [facility] 07/22/2018 21:16:28
--- OUTSIDE RECORDS SUMMARY | 2025-02-25 01:36 | XMS_ITS | Clinical Summary ---
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 Active losartan 50 MG tablet Take 50 mg by mouth daily. Active rosuvastatin 20 MG tablet Take 20 mg by mouth nightly at bedtime. Active aspirin 81 MG chewable tablet Chew 81 mg by mouth daily. Active loratadine 10 MG tablet Take 10 mg by mouth daily. Active Vitamin D3, cholecalciferol , 2000 UNIT Tab tablet Take 2,000 Units by mouth daily. Active omeprazole 20 MG capsule Take 20 mg by mouth daily. Active buPROPion SR (WELLBUTRIN SR) 150 MG 12 hr tablet Take 1 tablet (150 mg total) by mouth daily. Future refills by PCP 30 tablet 08/06/2022 Active Active Problems Problem Noted Date Diagnosed Date Electrocardiogram abnormal 04/25/2017 Obstructive sleep apnea syndrome 04/25/2017 Type 2 diabetes mellitus wit hout complication ([facility]) 04/25/2017 Fatigue 03/27/2017 Hypothyroidism (acquired) 03/27/2017 Multinodular goiter 01/13/2017 Benign hypertension 01/10/2017 Dyslipidemia 01/10/2017 Family History Medical History Relation Comments Hypertension Father [place] Father Stent Cardiac Father Hyperlipidemia Mother Stroke Mother Relation Status Comments Father Mother Social History Tobacco Use Types Packs/Day Years Used Date Smoking Tobacco: Every Day Cigarettes Smokeless Tobacco: Never Sex and Gender Information Value Date Recorded Sex Assigned at Not on file Legal Sex Male 8:22 PM CDT Gender Identity Not on file Sexual Orientation Not on file Last Filed Vital Signs Vital Sign Reading Time Taken Comments Blood Pressure 162/92 08/06/2022 3:00 PM CDT Pulse 99 08/06/2022 3:00 PM CDT Temperature - - Respiratory Rate - - Oxygen Saturation 97% 08/06/2022 3:00 PM CDT Inhaled Oxygen Concentration - - Weight 97.5 kg (215 lb) 08/06/2022 3:00 PM CDT Height 172.7 cm (5' 8 ) 08/06/2022 3:00 PM CDT Body Mass Index 32.69 08/06/2022 3:00 PM CDT Plan of Treatment Health Maintenance Due Date Last Done Comments Colorectal Cancer Screening Colonoscopy (10 Years) 1969 Annual Physical 1972 Pneumococcal Vaccine: Pediatrics (0 to 5 Years) and At-Risk Patients (6 to 64 Years) (1 of 2 - PCV) 1975 DTaP, Tdap and Td Vaccines (5 - Tdap) 11/18/1985 11/17/1985, 07/22/1984, 06/17/1974, Additional history exists Diabetes: Retinopathy Eye Exam 1987 Hepatitis C 1987 Hepatitis B Vaccines (1 of 3 - 19+ 3-dose series) 1988 Zoster Vaccines (1 of 2) 2019 COVID-19 Vaccine ( - season) 2024 Hemoglobin A1C 12/15/2024 06/14/2024, 01/15, 07/21/2020 Kidney Health Evaluation 06/14/2025 06/14/2024 Lipid Panel 06/14/2025 06/14/2024, 01/15, 12/15/2021, Additional history exists Meningococcal B Vaccine Aged Out No l onger eligible based on patient's age to complete this topic Meningococcal Vaccine Aged Out No fidelina faith eligible based on patient's age to complete this topic RSV Immunizations Under 20 Months Aged Out No longer eligible based on patient's age to complete this topic Procedures Procedure Name Priority Date/Time Associated Diagnosis Comments LIPID PANEL Routine 06/14/2024 10:11 AM CDT Hyperlipidemia, unspecified Hypertension, essential HEMOGLOBIN, GLYCOSYLATED Routine 06/14/2024 10:11 AM CDT Diabetes mellitus from Last 3 Months or Most Recently Relevant to Health Maintenance Results * (ABNORMAL) HEMOGLOBIN, GLYCOSYLATED (06/14/2024 10:11 AM CDT) HGB A1C 6.9(H) <5.7 % 06/14/2024 12:04 PM CDT [facility] Comment: ADA GUIDELINES 2010 5.7 TO 6.4% INCREASED RISK OF DIABETES > OR = 6.5% CONSISTENT WITH DIABETES ESTIMATED AVG GLUCOSE 151 mg/dL 06/14/2024 12:04 PM CDT [facility] 06/14/2024 10:1 1 AM CDT Mariya Haney NP LABORATORY Final Result [facility] [address] [place] [address], [place] [phone] * (ABNORMAL) LIPID PANEL (06/14/2024 10:11 AM CDT) CHOLESTEROL 168 <200 MG/DL 06/14/2024 12:27 PM CDT [facility] TRIGLYCERIDES 122 <150 MG/DL 06/14/2024 12:27 PM CDT [facility] HDL 40(L) >40.0 MG/DL 06/14/2024 12:27 PM CDT [facility] LDL (CALCULATED) 104(H) <100 MG/DL 06/14/2024 12:27 PM CDT [facility] NON HDL CHOLESTEROL 128 <130 MG/DL 06/14/2024 12:27 PM CDT [facility] CHOL/HDL RATIO 4.2 0.0 - 4.5 06/14/2024 12:27 PM CDT [facility] VLDL CALCULATION 24 5 - 55 MG/DL 06/14/2024 12:27 PM CDT [facility] LIPID INTERPRETATION 06/14/2024 12:27 PM CDT [facility] Comment: [facility] REPORT RECOMMENDATIONS: ADULT CHILD LOW RISK: CHOLESTEROL <200 <170 TRIGLYCERIDE <150 --- HDL >=60 --- LDL <100 <110 BORDERLINE: CHOLESTEROL 200-239 170-199 TRIGLYCERIDE 150-199 --- HDL 40-59 --- LDL 100-159 110-129 HIGH RISK: CHOLESTEROL >=240 >=200 TRIGLYCERIDE >=200 --- HDL <40 --- LDL >=160 >=130 06/14/2024 10:1 1 AM CDT us Mariya Haney MANAGER FACILITY LABORATORY Final Result [facility] [address] [place] [address], from Last 3 Months or Most Recently Relevant to Health Maintenance Insurance [place] [id number] [place] [address] Care Teams Carburizing Furnace Operator Relationship Specialty Start Date End Date Edenilson Dupree MD [address] [place], [place] [id number] PCP - General 03/31/14
[2025-02-25 09:23] VITALS: BP 108/58; PULSE 84; RESP 18; TEMP 36.3; O2SAT 99
--- NOTE | 2025-02-25 09:30 | P.PNAN_ITS ---
Anes - Initial Pre Proc Eval Procedure: Operation Date: 02/25/25 10:30 Proposed Procedures p Colonoscopy - Lino Krishnan MD Date/Time: 02/25/25 09:30 Surgeon: Lino Krishnan MD Pre Op Diagnosis: hx of colon polyps Patient Data Age: 54 Gender: M Height: 1.73 m Weight: 88.7 kg Last Vital Signs Temp 97.3 F L 02/25/25 09:23 Pulse 84 02/25/25 09:23 Resp 18 02/25/25 09:23 BP 108/58 L 02/25/25 09:23 Pulse Ox 99 02/25/25 09:23 O2 Del Method Room Air 02/25/25 09:23 Allergies Allergy/AdvReac Type Severity Reaction Status Date / Time No Known Allergies Allergy Verified 02/25/25 09:19 Home Medications ?Medication ?Instructions ?Recorded ?Confirmed ?Type aspirin 81 mg tablet,delayed 81 mg PO DAILY #90 tabs 09/14/23 02/25/25 Rx release (Adult Low Dose Aspirin) blood sugar diagnostic (Accu-Chek #100 ea 09/14/23 01/03/25 Rx Andria Plus test strips) blood-glucose meter #1 ea 09/14/23 01/03/25 Rx cholecalciferol (vitamin D3) 25 25 mcg PO DAILY #90 tabs 09/14/23 02/25/25 Rx mcg (1,000 unit) tablet (Vitamin D3) lancets (Accu-Chek Fastclix Lancet #100 ea 09/14/23 01/03/25 Rx Drum) loratadine 10 mg tablet (Claritin) 10 mg PO DAILY #90 tabs 09/14/23 02/25/25 Rx triamcinolone acetonide 55 mcg 1 spray intranasal DAILY #16.9 mL 09/14/23 02/25/25 Rx nasal spray aerosol (Nasacort) omeprazole 20 mg tablet,delayed 20 mg PO DAILY #90 tabs 01/06/24 02/25/25 Rx release levothyroxine 150 mcg tablet See Rx Instructions .Route 11/09/24 02/25/25 Rx .COMPLEX #90 tabs sildenafil 100 mg tablet 100 mg PO DAILY PRN sexual 11/11/24 02/16/25 Rx activity #30 tabs empagliflozin 25 mg tablet 25 mg PO QAM #90 tabs 01/03/25 02/25/25 Rx (Jardiance) losartan 100 See Rx Instructions .Route 01/26/25 02/25/25 Rx mg-hydrochlorothiazide 12.5 mg .COMPLEX #90 tabs tablet metformin 500 mg tablet,extended See Rx Instructions .Route 01/26/25 02/25/25 Rx release 24 hr .COMPLEX #180 tabs rosuvastatin 20 mg tablet See Rx Instructions .Route 02/08/25 02/25/25 Rx .COMPLEX #90 tabs bupropion HCl 150 mg tablet,12 hr See Rx Instructions .Route 02/21/25 02/25/25 Rx sustained-release .COMPLEX #90 tabs semaglutide 1 mg/dose (4 mg/3 mL) 1 mg (0.75 mL) subcut WEEKLY #3 mL 02/21/25 02/25/25 Rx subcutaneous pen injector (Ozempic) Patient hx anesthesia problems: none Family hx anesthesia problems: none Results Review: All pre-operative results and documents have been reviewed as part of the pre- operative evaluation. [facility] Past Medical History Medical History (Updated 01/03/25 @ 09:19 by BOB Ford) Elevated glucose BMI 31.0-31.9,adult Panniculitis Mesenteric panniculitis Hiatal hernia Hx of adenomatous colonic polyps Gastroenteritis Nausea and vomiting Epigastric abdominal pain BMI 30.0-30.9,adult Chest tightness Adenomatous colon polyp Elevated glucose Vitamin D deficiency Body mass index [BMI] 29.0-29.9, adult (11/11/18) Chronic joint pain Dietary counseling and surveillance (08/19/16) Elevated cholesterol Essential (primary) hypertension Ganglion cyst Herpes zoster without complication Hypothyroidism (acquired) Mass of left wrist Neck swelling Right bundle branch block Right hip pain Routine physical examination Screening for diabetes mellitus Screening for lipid disorders Screening for thyroid disorder Thyroid enlargement Thyroid mass Tobacco abuse Obesity Chronic GERD JUJU (obstructive sleep apnea) Hypothyroidism HTN (hypertension) Hyperlipidemia Surgical History Surgical History S/P thyroidectomy Family History Family History Father Family history of elevated blood lipids Family history of coronary artery disease Diabetes mellitus Bladder cancer Pulmonary hypertension Mother Family history of diabetes mellitus in first degree relative Diabetes mellitus Hypertension Family history of coronary artery disease Cerebrovascular accident Grandparent Family history of lung cancer Sibling No problems noted. Social History Social History Smoking packs per day: 1 Smoking cigarettes per day: 20.0 Smoking status: Former smoker Tobacco type: cigarettes Second hand tobacco smoke exposure: No Smoking end date: 07/18/22 Alcohol intake: current Drinks per week: 2 Substance use: never Substance use type: does not use Do You Feel Safe in your Home?: Yes Lack of Transportation: No Lack of Food: Never True Current Housing: I Have Housing Concerned About Future Housing: No Difficulty Paying Gas/Electric Bills: No Difficulty Paying for Meds: No Currently Unemployed: No Education: Master's Degree or Higher Difficulty w/ Childcare or Family Care: No Living arrangements: with family Occupation/Education: occupation Additional occupation/education comments: [employer] Gender identity (if verbalized by the patient): Male Spiritual care concerns: No Anes - Eval Final PreProcedure Day of Procedure 02/25/25 09:30 Patient weight: normal Heart: regular rate and rhythm Lungs: clear to auscultation Airway: Mallampati scale class II Neurological: alert and oriented Last oral intake: >/= 8 hours ASA classification: III Emergent: no Anesthetic plan: proceed Anesthesia type and monitoring: general GIVS and standard monitoring Results Review: All pre-operative results and documents have been reviewed as part of the pre- operative evaluation. Informed Consent: The patient's anesthetic plan and its attendant risks and benefits were discussed with the patient/family/POA. Questions were solicited and answers p rovided to the satisfaction of the patient/family/POA.
[2025-02-25] MEDS: LACTATED RINGERS 1,000 ML 150 ML IV CONT (09:34)
[2025-02-25 09:35] LABS: Glucose Point of Care 112 mg/dl (65-105)
--- NOTE | 2025-02-25 09:54 | PM.HPGS ---
History of Present Illness History of Present Illness Consent: Risks, benefits, and alternatives have been discussed and questions answered. Patient agrees to proceed with procedure. Chief complaint: hx of colon polyps Narrative: Donn Alexandre is a 54 year old male with polyps in 2021 Review of Systems Review of Systems: All systems reviewed & are unremarkable except as noted in HPI and below [facility] Past Medical History Medical History (Updated 01/03/25 @ 09:19 by BOB Ford) Elevated glucose BMI 31.0-31.9,adult Panniculitis Mesenteric panniculitis Hiatal hernia Hx of adenomatous colonic polyps Gastroenteritis Nausea and vomiting Epigastric abdominal pain BMI 30.0-30.9,adult Chest tightness Adenomatous colon polyp Elevated glucose Vitamin D deficiency Body mass index [BMI] 29.0-29.9, adult (11/11/18) Chronic joint pain Dietary counseling and surveillance (08/19/16) Elevated cholesterol Essential (primary) hypertension Ganglion cyst Herpes zoster without complication Hypothyroidism (acquired) Mass of left wrist Neck swelling Right bundle branch block Right hip pain Routine physical examination Screening for diabetes mellitus Screening for lipid disorders Screening for thyroid disorder Thyroid enlargement Thyroid mass Tobacco abuse Obesity Chronic GERD JUJU (obstructive sleep apnea) Hypothyroidism HTN (hypertension) Hyperlipidemia Surgical History Surgical History S/P thyroidectomy Family History Family History Father Family history of elevated blood lipids Family history of coronary artery disease Diabetes mellitus Bladder cancer Pulmonary hypertension Mother Family history of diabetes mellitus in first degree relative Diabetes mellitus Hypertension Family history of coronary artery disease Cerebrovascular accident Grandparent Family history of lung cancer Sibling No problems noted. Social History Social History Smoking packs per day: 1 Smoking cigarettes per day: 20.0 Smoking status: Former smoker Tobacco type: cigarettes Second hand tobacco smoke exposure: No Smoking end date: 07/18/22 Alcohol intake: current Drinks per week: 2 Substance use: never Substance use type: does not use Do You Feel Safe in your Home?: Yes Lack of Transportation: No Lack of Food: Never True Current Housing: I Have Housing Concerned About Future Housing: No Difficulty Paying Gas/Electric Bills: No Difficulty Paying for Meds: No Currently Unemployed: No Education: Master's Degree or Higher Difficulty w/ Childcare or Family Care: No Living arrangements: with family Occupation/Education: occupation Additional occupation/education comments: [employer] Gender identity (if verbalized by the patient): Male Spiritual care concerns: No Meds Home Medications and Allergies Home Medications ?Medication ?Instructions ?Recorded ?Confirmed ?Type aspirin 81 mg tablet,delayed 81 mg PO DAILY #90 tabs 09/14/23 02/25/25 Rx release (Adult Low Dose Aspirin) blood sugar diagnostic (Accu-Chek #100 ea 09/14/23 01/03/25 Rx Andria Plus test strips) blood-glucose meter #1 ea 09/14/23 01/03/25 Rx cholecalciferol (vitamin D3) 25 25 mcg PO DAILY #90 tabs 09/14/23 02/25/25 Rx mcg (1,000 unit) tablet (Vitamin D3) lancets (Accu-Chek Fastclix Lancet #100 ea 09/14/23 01/03/25 Rx Drum) loratadine 10 mg tablet (Claritin) 10 mg PO DAILY #90 tabs 09/14/23 02/25/25 Rx triamcinolone acetonide 55 mcg 1 spray intranasal DAILY #16.9 mL 09/14/23 02/25/25 Rx nasal spray aerosol (Nasacort) omeprazole 20 mg tablet,delayed 20 mg PO DAILY #90 tabs 01/06/24 02/25/25 Rx release levothyroxine 150 mcg tablet See Rx Instructions .Route 11/09/24 02/25/25 Rx .COMPLEX #90 tabs sildenafil 100 mg tablet 100 mg PO DAILY PRN sexual 11/11/24 02/16/25 Rx activity #30 tabs empagliflozin 25 mg tablet 25 mg PO QAM #90 tabs 01/03/25 02/25/25 Rx (Jardiance) losartan 100 See Rx Instructions .Route 01/26/25 02/25/25 Rx mg-hydrochlorothiazide 12.5 mg .COMPLEX #90 tabs tablet metformin 500 mg tablet,extended See Rx Instructions .Route 01/26/25 02/25/25 Rx release 24 hr .COMPLEX #180 tabs rosuvastatin 20 mg tablet See Rx Instructions .Route 02/08/25 02/25/25 Rx .COMPLEX #90 tabs bupropion HCl 150 mg tablet,12 hr See Rx Instructions .Route 02/21/25 02/25/25 Rx sustained-release .COMPLEX #90 tabs semaglutide 1 mg/dose (4 mg/3 mL) 1 mg (0.75 mL) subcut WEEKLY #3 mL 02/21/25 02/25/25 Rx subcutaneous pen injector (Ozempic) Allergies Allergy/AdvReac Type Severity Reaction Status Date / Time No Known Allergies Allergy Verified 02/25/25 09:19 Vital Signs Vital Signs - 24 hr 02/25/25 09:23 Temperature 97.3 F L Pulse Rate 84 Respiratory Rate 18 Blood Pressure 108/58 L Pulse Oximetry 99 Oxygen Delivery Room Air Exam Const: General: comfortable and no acute distress HENMT: Face/Nose/Sinus: Normal nares present Eyes: General: appearance normal, both eyes and all related structures Neck: Neck: no JVD Resp: Auscultation: clear to auscultation bilaterally Cardio: Rate: regular rate Rhythm: regular rhythm GI: Inspection: non-distended GI Palp: Yes Soft to palpation Skin: General skin exam: normal color Neuro: Speech: normal speech Extrem: General: normal to inspection Psych: Mental Status: mental status grossly normal Assessment and Plan Assessment and plan (1) Adenomatous colon polyp: Code(s): D12.6 - Benign neoplasm of colon, unspecified Status: Acute Assessment and Plan: colonoscopy
[2025-02-25 10:09] VITALS: BP 106/65; PULSE 75; RESP 18; O2SAT 96
[2025-02-25 10:19] VITALS: BP 95/52; PULSE 71; RESP 18; O2SAT 98
[2025-02-25 10:27] VITALS: BP 100/61; PULSE 70; RESP 18; O2SAT 97
== END 2025-02-25 10:41 | disposition home or self-care (01) ==
PROVIDERS: PCP Family Medicine; Referring Provider Internal Medicine Gastroenterology; Visit Provider Internal Medicine Gastroenterology
PROC: 0DJD8ZZ Inspection of Lower Intestinal Tract, Via Natural or Artificial Opening Endoscopic (ICD-10-PCS; CPT 45378; principal; 2025-02-25 10:30)
DX: Z12.11 Encounter for screening for malignant neoplasm of colon (principal); D12.3 Benign neoplasm of transverse colon; K64.8 Other hemorrhoids; K57.30 Diverticulosis of large intestine without perforation or abscess without bleeding; I10 Essential (primary) hypertension; E03.9 Hypothyroidism, unspecified; E55.9 Vitamin D deficiency, unspecified; E78.00 Pure hypercholesterolemia, unspecified; G47.33 Obstructive sleep apnea (adult) (pediatric); K65.4 Sclerosing mesenteritis; G89.29 Other chronic pain; I45.10 Unspecified right bundle-branch block; Z79.82 Long term (current) use of aspirin; Z79.84 Long term (current) use of oral hypoglycemic drugs; Z79.85 Long-term (current) use of injectable non-insulin antidiabetic drugs; Z98.890 Other specified postprocedural states; Z87.891 Personal history of nicotine dependence; Z80.52 Family history of malignant neoplasm of bladder; Z80.1 Family history of malignant neoplasm of trachea, bronchus and lung; Z82.49 Family history of ischemic heart disease and other diseases of the circulatory system
CPT/HCPCS: 45380; 82948; 88305; J2704; J7120